=== PATIENT | female | born 1985 | race African-American/Black ===

== ENCOUNTER 2019-08-15 09:44 | Emergency (ER) | payer OTHER ==
[~2019-08-15] VITALS: Ht 162.6 cm; Wt 64.0 kg
[2019-08-15] MEDS ORDERED: HYDROCODONE/ACETAMINOPHEN 5/325MG TABLET PO ONE (11:15)
[2019-08-15] MEDS ORDERED: ONDANSETRON 4MG ODT PO ONE (11:15)
[2019-08-15] MEDS ORDERED: KETOROLAC 60MG/2ML VIAL IM ONE (11:15)
[2019-08-15 12:04] VITALS: BP 122/83
== END 2019-08-15 12:05 | disposition home or self-care (01) ==
LOC: ER 09:44
DX: K04.7 Periapical abscess without sinus (principal)
CPT/HCPCS: 96372; 99283; J1885; Q0162